=== PATIENT | male | born 1980 | race Native Hawaiian/Other Pacific Islander ===

== ENCOUNTER 2018-10-24 18:33 | Emergency (ER) | payer OTHER ==
[~2018-10-24] VITALS: Ht 177.8 cm; Wt 77.1 kg
[2018-10-24 21:04] VITALS: BP 135/88; TEMP 1007
== END 2018-10-24 21:05 | disposition home or self-care (01) ==
LOC: ED 18:33
DX: J11.1 Influenza due to unidentified influenza virus with other respiratory manifestations (principal)
CPT/HCPCS: 87502; 87651; 96372; 99283; J1100; J2930